=== PATIENT | female | born 1960 | race African-American/Black ===

== ENCOUNTER 2016-12-29 08:57 | Emergency (ER) | payer BC ==
[2016-12-29 09:10] VITALS: BP 155/68; PULSE 85; TEMP 98.7; BMI 37.3
[2016-12-29] MEDS ORDERED: DIPHTH,PERTUSS(ACELL),TET 0.5 ML DISP.SYRIN IM ONE (09:52)
[2016-12-29] MEDS ORDERED: ACETAMINOPHEN 325 MG TABLET (FP) PO ONE (10:44)
--- NOTE | 2016-12-29 10:49 | PDOC ---
History of Present Illness - General Chief Complaint: Injury Stated Complaint: FACE INJURY, FALL Time Seen by Provider: 12/29/16 09:40 History Source: Patient Exam Limitations: No Limitations - History of Present Illness Initial Comments: 12/29/16 10:45 CC tripped and fell on uneven sidewalk to day; hitting face on ground Occurred: reports: just prior to arrival Severity: reports: mild Pain Location: reports: face, lower extremity (left knee; left hand) Method of Injury: Yes: fall Past History - Past Medical History Allergies/Adverse Reactions: Allergies Allergy/AdvReac Type Severity Reaction Status Date / Time HAYFEVER Allergy Intermediate Uncoded 12/29/16 09:06 Home Medications: Ambulatory Orders NK [No Known Home Medication] 12/29/16 Anemia: No Asthma: No Cancer: No Cardiac Disorders: No CVA: No COPD: No CHF: No Dementia: No Diabetes: Yes (niddm) GI Disorders: No Disorders: No HTN: No Hypercholesterolemia: No Liver Disease: No Seizures: No Thyroid Disease: No - Psycho/Social/Smoking Cessation Hx Anxiety: No Suicidal Ideation: No Smoking Status: No Smoking History: Never smoked Have you smoked in the past 12 months: No Number of Cigarettes Smoked Daily: 0 Information on smoking cessation initiated: No Hx Alcohol Use: No Drug/Substance Use Hx: No Substance Use Type: None Hx Substance Use Treatment: No Review of Systems - Review of Systems Constitutional: No: Chills, Fever, Malaise HEENTM: No: Symptoms Reported Respiratory: No: Symptoms reported Cardiac (ROS): No: Symptoms Reported Musculoskeletal: No: Back Pain, Neck Pain Neurological: Yes: Headache. No: Symptoms reported, Numbness *Physical Exam - Vital Signs Last Vital Signs Temp Pulse Resp BP Pulse Ox 98.7 F 85 18 155/68 100 12/29/16 09:06 12/29/16 09:06 12/29/16 09:06 12/29/16 09:06 12/29/16 09:06 - Physical Exam General Appearance: Yes: Appropriately Dressed. No: Apparent Distress HEENT: positive: TMs Normal, Pharynx Normal, Other (FROM TMJ; no loose teeth; tender to mandible anterior to angle of jaw; multiple abrasion o face; with large hematoma forehead) Neck: positive: Supple. negative: Tender, Rigid, Tender lateral, Tender midline Respiratory/Chest: positive: Lungs Clear Extremity: positive: Other (mild tenderness to left hand and knee) Neurologic: positive: plumber's assistant II-XII NML intact, Fully Oriented, Alert, Normal Response, Motor Strength 5/5. negative: Facial Droop, Numbness, Sensory Deficit ED Treatment Course - RADIOLOGY Radiology Studies Ordered: Category Date Time Status FACIAL BONES CT W/O CONTRAST [CT] Stat CT Scan 12/29/16 09:[address] WITHOUT CONTRAST [CT] Stat CT Scan 12/29/16 09:53 Taken Medical Decision Making - Medical Decision Making 12/29/16 11:26 Tetanus given; tylenol for headache *DC/Admit/Observation/Transfer Diagnosis at time of Disposition: Multiple contusions Abrasion of face Qualifiers: Encounter type: initial encounter Qualified Code(s): S00.81XA - Abrasion of other part of head, initial encounter - Discharge Dispostion Disposition: HOME Condition at time of disposition: Stable Admit: No - Post Discharge Activity Work/School Note: Back to Work
--- NOTE | 2016-12-29 11:45 | PDOC ---
History of Present Illness - General Chief Complaint: Injury Stated Complaint: FACE INJURY, FALL Time Seen by Provider: 12/29/16 09:40 Past History - Past Medical History Allergies/Adverse Reactions: Allergies Allergy/AdvReac Type Severity Reaction Status Date / Time HAYFEVER Allergy Intermediate Uncoded 12/29/16 09:06 Home Medications: Ambulatory Orders NK [No Known Home Medication] 12/29/16 Anemia: No Asthma: No Cancer: No Cardiac Disorders: No CVA: No COPD: No CHF: No Dementia: No Diabetes: Yes (niddm) GI Disorders: No Disorders: No HTN: No Hypercholesterolemia: No Liver Disease: No Seizures: No Thyroid Disease: No - Psycho/Social/Smoking Cessation Hx Anxiety: No Suicidal Ideation: No Smoking Status: No Smoking History: Never smoked Have you smoked in the past 12 months: No Number of Cigarettes Smoked Daily: 0 Information on smoking cessation initiated: No Hx Alcohol Use: No Drug/Substance Use Hx: No Substance Use Type: None Hx Substance Use Treatment: No *Physical Exam - Vital Signs Last Vital Signs Temp Pulse Resp BP Pulse Ox 98.7 F 85 18 155/68 100 12/29/16 09:06 12/29/16 09:06 12/29/16 09:06 12/29/16 09:06 12/29/16 09:06 ED Treatment Course - RADIOLOGY Radiology Studies Ordered: Category Date Time Status FACIAL BONES CT W/O CONTRAST [CT] Stat CT Scan 12/29/16 09:[address] WITHOUT CONTRAST [CT] Stat CT Scan 12/29/16 09:53 Taken - Medications Given in the ED: ED Medications Discontinued Medications Generic Name Dose Route Start Last Admin Trade Name Juan Jose PRN Reason Stop Dose Admin Acetaminophen 650 mg 12/29/16 10:44 12/29/16 11:10 Tylenol - PO 12/29/16 10:45 650 mg ONCE ONE Administration Diphtheria/Tetanus/Acell Pertussis 0.5 ml 12/29/16 09:52 12/29/16 10:24 Boostrix - IM 12/29/16 09:53 0.5 ml .ONCE ONE Administration *DC/Admit/Observation/Transfer Diagnosis at time of Disposition: Multiple contusions Abrasion of face Qualifiers: Encounter type: initial encounter Qualified Code(s): S00.81XA - Abrasion of other part of head, initial encounter - Discharge Dispostion Disposition: HOME Condition at time of disposition: Stable - Referrals Referrals: Matthew Ingram MD [Primary Care Provider] - - Patient Instructions Additional Instructions: please see local MD in 2 fdays for reevaluation - Post Discharge Activity Work/School Note: Back to Work
== END 2016-12-29 11:54 | disposition home or self-care (01) ==
LOC: JERFT 08:57
PROC: 3E0234Z Introduction of Serum, Toxoid and Vaccine into Muscle, Percutaneous Approach (ICD-10-PCS; principal; 2016-12-29)
DX: S00.83XA Contusion of other part of head, initial encounter (principal); S00.81XA Abrasion of other part of head, initial encounter; W17.89XA Other fall from one level to another, initial encounter; Y93.01 Activity, walking, marching and hiking; Y92.480 Sidewalk as the place of occurrence of the external cause; Y99.8 Other external cause status; E11.9 Type 2 diabetes mellitus without complications; Z79.84 Long term (current) use of oral hypoglycemic drugs
CPT/HCPCS: 70450-TC; 70486-TC; 90715; 99281-25

== ENCOUNTER 2018-04-24 08:40 | Emergency (ER) | payer BC ==
[2018-04-24 08:49] VITALS: BP 188/79; PULSE 70; TEMP 99; BMI 37.3
--- NOTE | 2018-04-24 08:54 | PDOC ---
History of Present Illness - General Chief Complaint: Pain Stated Complaint: LT FOOT PAIN Time Seen by Provider: 04/24/18 08:52 History Source: Patient Exam Limitations: No Limitations - History of Present Illness Initial Comments: 04/24/18 10:13 Pt is a 57 y/o F with PMH of diabetes, L achilles repair, who presents to the ED for L heel/ankle pain. Pt states she has two bumps behind her calf. She saw Dr. Saunders for the first bump approximately 2 weeks and since it wasn't bothering her, she was told to watch and wait. Today, pt states she now has two bumps and they are sore. She feels like they are getting larger. Denies fevers, chills, redness to the surrounding area, numbness/weakness to the extremity. Past History - Travel Traveled outside of the country in the last 30 days: No Close contact w/someone who was outside of country & ill: No - Past Medical History Allergies/Adverse Reactions: Allergies Allergy/AdvReac Type Severity Reaction Status Date / Time HAYFEVER Allergy Intermediate Uncoded 04/24/18 08:49 Home Medications: Ambulatory Orders Metformin HCl [Glucophage] 500 mg PO BID 04/24/18 Oxycodone HCl/Acetaminophen [Percocet 5-325 mg Tablet] 1 tab PO Q6H #15 tablet MDD 4 04/24/18 Anemia: No Asthma: No Cancer: No Cardiac Disorders: No CVA: No COPD: No CHF: No Dementia: No Diabetes: Yes (niddm) GI Disorders: No Disorders: No HTN: No Hypercholesterolemia: No Liver Disease: No Seizures: No Thyroid Disease: No - Suicide/Smoking/Psychosocial Hx Smoking Status: No Smoking History: Never smoked Have you smoked in the past 12 months: No Number of Cigarettes Smoked Daily: 0 Hx Alcohol Use: No Drug/Substance Use Hx: No Substance Use Type: None Hx Substance Use Treatment: No Review of Systems - Review of Systems Able to Perform ROS?: Yes Comments:: 04/24/18 08:53 CONSTITUTIONAL: Absent: fever, chills, diaphoresis, generalized weakness, malaise, loss of appetite HEENT: Absent: rhinorrhea, nasal congestion, throat pain, throat swelling, difficulty swallowing, mouth swelling, ear pain, eye pain, visual Changes CARDIOVASCULAR: Absent: chest pain, loss of consciousness, palpitations, irregular heart rate, peripheral edema RESPIRATORY: Absent: cough, shortness of breath, dyspnea with exertion, orthopnea, wheezing, stridor, hemoptysis GASTROINTESTINAL: Absent: abdominal pain, abdominal distension, nausea, vomiting, diarrhea, constipation, melena, hematochezia GENITOURINARY: Absent: dysuria, frequency, urgency, hesitancy, hematuria, flank pain, genital pain MUSCULOSKELETAL: Present: L heel pain Absent: myalgia, arthralgia, joint swelling SKIN: Absent: rash, itching, pallor HEMATOLOGIC/IMMUNOLOGIC: Absent: easy bleeding, easy bruising, lymphadenopathy, frequent infections ENDOCRINE: Absent: unexplained weight gain, unexplained weight loss, heat intolerance, cold intolerance NEUROLOGIC: Absent: headache, focal weakness or paresthesias, dizziness, unsteady gait, seizure, mental status changes, bladder or bowel incontinence PSYCHIATRIC: Absent: anxiety, depression, suicidal or homicidal ideation, hallucinations. Is the patient limited Estonian proficient: No *Physical Exam - Vital Signs Last Vital Signs Temp Pulse Resp BP Pulse Ox 99.0 F 70 18 188/79 99 04/24/18 08:44 04/24/18 08:44 04/24/18 08:44 04/24/18 08:44 04/24/18 08:44 - Physical Exam Comments: 04/24/18 08:53 GENERAL: Well developed, well nourished. Awake and alert. No acute distress. MUSCULOSKELETAL Normal range of motion at all joints. No bony deformities or tenderness. No CVA tenderness. EXTREMITIES: No cyanosis. No clubbing. No edema. No calf tenderness. SKIN: Two nodules to the L posterior ankle just lateral to the achilles tendon. TTP, non-fluctuant. No evidence of cellulitis. Warm and dry. Normal capillary refill. No rashes. No jaundice. NEUROLOGICAL: Alert, awake, appropriate. Cranial nerves 2-12 intact. No deficits to light touch and temperature in face, upper extremities and lower extremities. No motor deficits in the in face, upper extremities and lower extremities. Normoreflexic in the upper and lower extremities. Normal speech. Toes are down- going bilaterally. Gait is normal without ataxia. Medical Decision Making - Medical Decision Making 04/24/18 10:35 Pt is a 57 y/o F with PMH of diabetes, L achilles repair, who presents to the ED for L heel/ankle pain. Pt states she has two bumps behind her calf -Exam with no evidence of cellulitis. Bumps are non-fluctuant -Ultrasound: 2 adjacent nonspecific soft tissue nodules are seen along the midline left ankle posteriorly measuring 1.3 height 1.1 x 0.7 cm and 1 x 0.9 x 0.5 cm no definitive fluid collection is noted. There appears to be soft tissue edema. -Will medicate for pain and have pt f/u with Dr. Saunders for non-specific nodules s/p achilles repair -Dc home. Return precautions given. Pt understands all dc instructions and all questions were answered. *DC/Admit/Observation/Transfer Diagnosis at time of Disposition: Multiple skin nodules - Discharge Dispostion Disposition: HOME Condition at time of disposition: Stable Decision to Admit order: No - Prescriptions Prescriptions: Oxycodone HCl/Acetaminophen [Percocet 5-325 mg Tablet] 1 tab PO Q6H #15 tablet MDD 4 - Referrals Referrals: Donald Ingram MD [Primary Care Provider] - Calderon Saunders MD [Staff Physician] - - Patient Instructions Additional Instructions: You have an outpouching of skin behind her ankle called nodules. Your ultrasound today did not show any evidence of infection, or fluid Use warm compresses to the area to help with pain. You may take Percocet every 6 hours as needed for pain. Do not drink or drive after taking this medication as it may make you sleepy Please keep your follow-up with Dr. Saunders for Wednesday. Return to emergency department if you have increased pain, numbness and tingling to the extremity, fevers, or if you have any changes in your symptoms. - Post Discharge Activity
== END 2018-04-24 11:35 | disposition home or self-care (01) ==
LOC: JERFT 08:40
DX: R22.42 Localized swelling, mass and lump, left lower limb (principal)
CPT/HCPCS: 76882; 99281-25

== ENCOUNTER 2019-09-10 09:42 | Emergency (ER) | payer BC ==
[2019-09-10 09:54] VITALS: BP 145/80; PULSE 100; TEMP 97.8; BMI 42.9
--- NOTE | 2019-09-10 11:15 | PDOC ---
History of Present Illness - General Chief Complaint: Abscess Boil Stated Complaint: BOIL/LEFT HEEL Time Seen by Provider: 09/10/19 10:06 History Source: Patient Exam Limitations: No Limitations - History of Present Illness Initial Comments: 09/10/19 11:11 59-year-old female status post Achilles tendon repair in 2014 presents to ED with recurrent mass over incisional site. Patient states approximate 1 year ago area became swollen and painful. Patient states went to her orthopedist Dr. Saunders who drained it but had no answer in regards to what it could have been. Patient states pain with ambulation especially flexion. Patient denies fever, chills but is a diabetic and states her glucose is controlled with no other associated symptoms. Timing/Duration: reports: other (2 days) Severity: Yes: mild Location: reports: none (Ankle) Associated Symptoms: reports: swelling/mass/lumps Past History - Travel Traveled outside of the country in the last 30 days: Yes - Past Medical History Allergies/Adverse Reactions: Allergies Allergy/AdvReac Type Severity Reaction Status Date / Time HAYFEVER Allergy Intermediate Uncoded 09/10/19 09:54 Home Medications: Ambulatory Orders Metformin HCl [Glucophage] 500 mg PO BID 04/24/18 Oxycodone HCl/Acetaminophen [Percocet 5-325 mg Tablet] 1 tab PO Q6H #15 tablet MDD 4 04/24/18 Anemia: No Asthma: No Cancer: No Cardiac Disorders: No CVA: No COPD: No CHF: No Dementia: No Diabetes: Yes (niddm) GI Disorders: No Disorders: No HTN: No Hypercholesterolemia: No Liver Disease: No Seizures: No Thyroid Disease: No - Psycho Social/Smoking Cessation Hx Smoking Status: No Smoking History: Never smoked Have you smoked in the past 12 months: No Number of Cigarettes Smoked Daily: 0 Hx Alcohol Use: No Drug/Substance Use Hx: No Substance Use Type: None Hx Substance Use Treatment: No Patient Lives Alone: No Lives with/in: spouse/SO Review of Systems - Review of Systems Able to Perform ROS?: No Is the patient limited Urdu proficient: No Constitutional: No: Symptoms Reported Integumentary: Yes: Lumps Neurological: No: Symptoms reported *Physical Exam - Vital Signs Last Vital Signs Temp Pulse Resp BP Pulse Ox 97.8 F 100 H 18 145/80 99 09/10/19 09:51 09/10/19 09:51 09/10/19 09:51 09/10/19 09:51 09/10/19 09:51 - Physical Exam General Appearance: Yes: Nourished, Appropriately Dressed. No: Apparent Distress Vascular Pulses: Doralis-Pedis (L): 2+ Integumentary: positive: Normal Color, Warm, Moist, Swelling ( 2 x 1 cm fluctuant mass over left Achilles/incisional site) Neurologic: positive: Motor Strength 5/5 (Ambulatory with cane) Procedures - Incision and Drainage I&D Site: Left: Other Betadine cleansed: No Anesthesia: 1% Lidocaine Volume(ml): 1 Blade Size: 11 Attempts: 1 (Drained approximately 3 cc of purulent fluid ) ED Treatment Course - RADIOLOGY Radiology Studies Ordered: Category Date Time Status ANKLE-LEFT [RAD] Stat Radiology 09/10/19 10:19 Ordered Medical Decision Making - Medical Decision Making 09/10/19 11:14 . Chief complaint: None mass over left Achilles repair done 2015. Patient with recurrent mass last episode being 1 year ago drained by Dr. Saunders. Exam: 2 x 1cm fuctulanct mass over left achilles Plan: I & D with wound cx. Discharge home with antibiotics secondary to diabetes. Patient has appointment with Dr. Saunders tomorrow. patient given copy of x-ray Discharge - Discharge Information Problems reviewed: Yes Clinical Impression/Diagnosis: Achilles tendon mass, Encounter for incision and drainage procedure Condition: Improved Disposition: HOME - Follow up/Referral Referrals: ON STAFF,NOT [Primary Care Provider] - Calderon Saunders MD [Staff Physician] - - Patient Discharge Instructions Patient Printed Discharge Instructions: DI for Incision and Drainage of a Skin Abscess Additional Instructions: Please follow Dr. Saunders Tomorrow. Please take antibiotics as prescribed. - Post Discharge Activity
== END 2019-09-10 11:19 | disposition home or self-care (01) ==
LOC: JERFT 09:42
PROC: 0J9P0ZZ Drainage of Left Lower Leg Subcutaneous Tissue and Fascia, Open Approach (ICD-10-PCS; principal; 2019-09-10)
DX: R22.42 Localized swelling, mass and lump, left lower limb (principal); E11.9 Type 2 diabetes mellitus without complications; Z79.84 Long term (current) use of oral hypoglycemic drugs
CPT/HCPCS: 73610-TC-LT-FY; 87070; 87077; 87186; 87205; 99282-25

== ENCOUNTER 2019-09-12 12:22 | Day surgery (SDC) | payer BC ==
--- NOTE | 2019-09-12 10:05 | HP ---
[facility] - Chief Complaint Chief Complaint: left ankle infection - Past Medical History Allergies/Adverse Reactions: Allergies Allergy/AdvReac Type Severity Reaction Status Date / Time HAYFEVER Allergy Intermediate Uncoded 09/10/19 09:54 ...LMP: 05/17/14 - Current Medications Current Medications: Home Medications Medication Instructions Recorded Metformin HCl [Glucophage] 500 mg PO BID 04/24/18 Oxycodone HCl/Acetaminophen 1 tab PO Q6H #15 tablet MDD 4 04/24/18 [Percocet 5-325 mg Tablet] Sulfamethoxazole/Trimethoprim 1 tab PO BID #14 tablet 09/10/19 [Bactrim DS -] Hydrocodone/Acetaminophen 1 each PO Q6H #20 tablet MDD 4 09/12/19 [Hydrocodone-Acetamin 5-325 mg] Satellite Physical Exam - Physical Examination General Appearance: Well Nourished, Well Developed, Alert & Oriented x3 ENT: Clear Lung: Normal air movement Extremities: Other (left ankle- + swelling, + drainage, + opending over previous incision, decr rom, nvi) Neurological: Intact, Alert, Oriented Satellite Impression/Plan - Impression/Plan Impression: left ankle infection s/p achilles tendon repair Operative Procedure: left ankle I&D Date to be Performed: 09/12/19
[2019-09-12] MEDS ORDERED: SEVOFLURANE 250 ML BTL ONE (13:33)
[2019-09-12] MEDS ORDERED: DESFLURANE GAS 240 ML BOTTLE IH ONE ×2 (13:33→13:34)
[2019-09-12 13:37] VITALS: BMI 42.9
[2019-09-12] MEDS ORDERED: ceFAZolin SODIUM 1 GM VIAL ONE ×2 (13:38→14:31)
[2019-09-12] MEDS ORDERED: LIDOCAINE HCL/PF 2% SDV 5ML VIAL ONE (13:40)
[2019-09-12] MEDS ORDERED: PROPOFOL 20 ML ONE ×4 (13:40→14:24)
[2019-09-12] MEDS ORDERED: ROCURONIUM BROMIDE 50 MG/5 ML SYRINGE ONE (13:40)
[2019-09-12] MEDS ORDERED: KETOROLAC TROMETHAMINE 30 MG/1 ML VIAL ONE (13:40)
[2019-09-12] MEDS ORDERED: MIDAZOLAM HCL 2 MG/2 ML SINGLE DOSE VIAL ONE (13:59)
[2019-09-12] MEDS ORDERED: ONDANSETRON 4 MG/2 ML VIAL IVPUSH PRN (14:04)
[2019-09-12 14:06] LABS: ALBUMIN 3.7 g/dl (3.4-5.0); BILIRUBIN,TOTAL 0.5 mg/dL (0.2-1); BLOOD UREA NITROGEN 14.2 mg/dL (7-18); CALCIUM 9.1 mg/dL (8.5-10.1); CREATININE 1.1 mg/dL (0.55-1.3); POTASSIUM 4.1 mmol/L (3.5-5.1)
[2019-09-12] MEDS ORDERED: LACTATED RINGERS SOLUTION 1,000 ML IV SCH (14:15)
[2019-09-12] MEDS ORDERED: SODIUM CHLORIDE 0.9% P/F 10 ML VIAL IJ ONE ×2 (14:31→14:32)
[2019-09-12] MEDS ORDERED: LIDOCAINE HCL 2% (20ML MULTI-DOSE VIAL) ONE (14:32)
[2019-09-12] MEDS ORDERED: METOPROLOL TARTRATE 5 MG/5 ML VIAL ONE (14:35)
[2019-09-12] MEDS ORDERED: LIDOCAINE HCL 2% (50ML VIAL) INF ONE (14:39)
[2019-09-12] MEDS ORDERED: BACITRACIN 50,000 UNITS VIAL NR ONE (14:39)
[2019-09-12] MEDS ORDERED: ceFAZolin SODIUM 1 GM VIAL IVPB ONE ×2 (14:39)
--- NOTE | 2019-09-12 15:16 | OP ---
Operative Note - Note: Operative Date: 09/12/19 Pre-Operative Diagnosis: left achilles tendon infection vs inflammation Operation: left achilles tendon incision and drainage Post-Operative Diagnosis: Same as Pre-op Surgeon: Calderon Saunders Anesthesiologist/REINSURANCE CLAIMS ANALYST: Sridhar Jay Anesthesia: Local, MAC Specimens Removed: scrapings, inflammatory tissue, culture sticks x 2 Estimated Blood Loss (mls): 0 Drains, Volume Out (mls): 0 Blood Volume Replaced (mls): 0 Fluid Volume Replaced (mls): 500 Operative Report Dictated: Yes
[2019-09-12 16:34] VITALS: TEMP 98.5
[2019-09-12 17:49] VITALS: BP 153/90; PULSE 90
--- NOTE | 2019-09-12 17:58 | OP ---
DATE OF OPERATION: DATE OF DICTATION: 09/12/2019 PREOPERATIVE DIAGNOSIS: Possible infection left Achilles tendon area. POSTOPERATIVE DIAGNOSIS: Possible infection left Achilles tendon area. PROCEDURE: Open incision and drainage left Achilles tendon area. SURGEON: Kori Garner M.D. CARE DIRECTOR RN: None. ANESTHESIOLOGIST: Sridhar Jay CRNA DRAINS: None. COMPLICATIONS: None. SPECIMENS: 2 culture sticks with tissue. BLOOD LOSS: Minimal. BLOOD GIVEN: None. INDICATION: The patient is a 59-year-old female who is 5 months status post left Achilles tendon repair. From the repair, she is doing great. She has full ankle plantar flexion, dorsiflexion, inversion, aversion, makes circles in both directions. She has excellent plantar flexion and strength. The integrity of the Achilles tendon has not been compromised but recently she developed some swelling in the dorsal aspect of the left Achilles tendon in the area of the previous surgical incision. Recently it opened up and it was swollen out to drainage. A cottage-cheese type substance was evacuated from this area. Culture stick was sent off, so far they are all negative, but the patient is on Bactrim-DS. The decision was made together to bring the patient to the operating room to do a small incision and drainage to make sure the infection if there is one does not spread further. DESCRIPTION OF PROCEDURE: The patient was brought to the operating room, peripheral IV placed, IV sedation given. 2 g of IV Ancef were given. MAC anesthesia was induced. She was placed into the prone position with her head tilted to the left. The left lower extremity was prepped and draped in sterile fashion. Tourniquet was applied to the left calf. A 10 mL 0.5% Marcaine, 1% lidocaine mix was injected in and around the surgical incision. An Esmarch bandage was used to exsanguinate the left lower extremity distal to the tourniquet, and the tourniquet was inflated to 275 mmHg. Next, a fresh number 15 scalpel blade was utilized to cut down through the skin, subcutaneous hemostasis was achieved with the Bovie cautery. Dissection done with the Metzenbaum scissors circumferentially around the very small collection of this cottage cheese-type substance. There was no pus, no fluid. It was scraped clean, and its very small pseudocapsule removed as well. This was all passed off the field as specimen, 2 culture sticks. Next, the area was irrigated and washed out. Next, I used a small curet to scrape clean this area of the pseudocapsule and this white substance. There was one Fiberwire suture which was poking through the Achilles sheath a bit. There was no track, no sinus, and there was no fluid, but it might have been irritated in this area, and now 5 months out the Achilles tendon is healed, so this Fiberwire suture was removed. This whole thing may have been an inflammatory response in response to this Fiberwire suture, but that is difficult to say. The rest of the tissue looked pristine, looked very clean. There were no sinus tracts. The area was explored, expressed. No fluid was evacuated, and the area was then copiously irrigated with a total of 500 mg of sterile saline with the pulse lavage infused with 50,000 units of bacitracin. After the irrigation, it was very clean. It was dried. 2-0 Vicryl suture was used to close the deep dermal layer, then final skin reapproximation was done with the alexia. The area was then washed and dried and covered in Xeroform gauze, 4x4 gauze, Webril and Coban. The tourniquet was taken down after a total tourniquet time of 17 minutes. There were no complications during the case. The patient tolerated the procedure well and was brought to the ambulatory recovery in stable condition. KORI GARNER M.D. [id number]
== END 2019-09-12 17:20 | disposition home or self-care (01) ==
LOC: JASU-SURG 12:22
PROVIDERS: ATTEND Orthopaedic Surgery
PROC: 0JCP0ZZ Extirpation of Matter from Left Lower Leg Subcutaneous Tissue and Fascia, Open Approach (ICD-10-PCS; principal; 2019-09-12 14:30)
DX: M22.42 Chondromalacia patellae, left knee (principal)
CPT/HCPCS: 36415; 80053; 82962; 87070; 87075; 87205; 94760

== ENCOUNTER 2020-03-11 04:29 | Day surgery (SDC) | payer BC ==
[2020-03-07 16:48] VITALS: BMI 37.6
--- NOTE | 2020-03-08 11:50 | HP ---
[facility] - Chief Complaint Chief Complaint: right knee pain - Past Medical History Allergies/Adverse Reactions: Allergies Allergy/AdvReac Type Severity Reaction Status Date / Time No Known Drug Allergies Allergy Verified 03/07/20 16:48 HAYFEVER Allergy Intermediate Uncoded 03/07/20 16:48 ...LMP: 05/17/14 - Current Medications Current Medications: Home Medications Medication Instructions Recorded Metformin HCl [Glucophage] 500 mg PO BID 04/24/18 Amlodipine Besylate 5 mg PO DAILY 09/12/19 Satellite Physical Exam - Physical Examination General Appearance: Well Nourished, Well Developed, Alert & Oriented x3 ENT: Clear Lung: Normal air movement Extremities: Other (right knee- + swelling, + ttp, decr rom, nvii) Neurological: Intact, Alert, Oriented Satellite Impression/Plan - Impression/Plan Impression: right knee internal derangement Operative Procedure: right knee arthroscopy Date to be Performed: 03/11/20
[2020-03-11 07:19] VITALS: BP 140/83; PULSE 85; TEMP 97.5
== END 2020-03-11 10:20 | disposition home or self-care (01) ==
LOC: JASU-SURG 04:29
PROVIDERS: ATTEND Orthopaedic Surgery
DX: Z53.8 Procedure and treatment not carried out for other reasons (principal)
CPT/HCPCS: 82962

== ENCOUNTER → 2020-03-13 | Day surgery (SDC) | payer BC ==
[2020-03-12 12:17] VITALS: BMI 37.6
--- NOTE | 2020-03-12 16:57 | HP ---
[facility] - Chief Complaint Chief Complaint: right knee pain - Past Medical History Allergies/Adverse Reactions: Allergies Allergy/AdvReac Type Severity Reaction Status Date / Time No Known Drug Allergies Allergy Verified 03/11/20 07:25 HAYFEVER Allergy Intermediate Uncoded 03/11/20 07:25 ...LMP: 05/17/14 - Current Medications Current Medications: Home Medications Medication Instructions Recorded Metformin HCl [Glucophage] 500 mg PO BID 04/24/18 Amlodipine Besylate 5 mg PO DAILY 09/12/19 Satellite Physical Exam - Physical Examination General Appearance: Well Nourished, Well Developed, Alert & Oriented x3 ENT: Clear Lung: Normal air movement Extremities: Other (right knee- + swelling, + ttp, decr rom, nvi) Neurological: Intact, Alert, Oriented Satellite Impression/Plan - Impression/Plan Impression: right knee internal derangement Operative Procedure: right knee arthroscopy Date to be Performed: 03/12/20
[~2020-03-13] MED LIST: DEXAMETHASONE SOD PHOSPHATE 4 MG/1 ML VIAL ONE; IBUPROFEN 800 MG/8 ML IJ IVPB ONE; IBUPROFEN 800 MG/8 ML IJ IVPB PRN; INSULIN (NOVOLOG) ASPART 100 UNITS/ML 10ML VIAL SQ ONE; INSULIN REGULAR HUMAN 100 UNITS/ML *VIAL SQ ONE; LACTATED RINGERS SOLUTION 1,000 ML IV SCH; LIDOCAINE HCL/PF 2% SDV 5ML VIAL ONE; MIDAZOLAM HCL 2 MG/2 ML SINGLE DOSE VIAL ONE; ONDANSETRON 4 MG/2 ML VIAL IVPUSH PRN; PROPOFOL 20 ML ONE; SODIUM CHLORIDE 0.9% P/F 10 ML VIAL IJ ONE; ceFAZolin 2 GRAM PREMIX BAG IVPB ONE; ceFAZolin SODIUM 1 GM VIAL ONE; oxyCODONE HCL 5 MG TABLET PO PRN
--- NOTE | 2020-03-13 10:51 | OP ---
Operative Note - Note: Operative Date: 03/13/20 Pre-Operative Diagnosis: right knee pain, medial meniscus tear, OA Operation: right knee arthroscopy, partial medial meniscectomy, debridement chondroplasty Post-Operative Diagnosis: Same as Pre-op Surgeon: Calderon Saunders Anesthesiologist/STORAGE BATTERY INSPECTOR AND TESTER: Hanna Andres Anesthesia: General, Local Specimens Removed: shavings Estimated Blood Loss (mls): 15 Drains, Volume Out (mls): 0 Blood Volume Replaced (mls): 0 Fluid Volume Replaced (mls): 700 Operative Report Dictated: Yes
[2020-03-13 14:51] VITALS: BP 120/66; PULSE 79; TEMP 97.8
--- NOTE | 2020-03-14 12:44 | OP ---
DATE OF OPERATION: DATE OF DICTATION: 03/13/2020 PREOPERATIVE DIAGNOSIS: Right knee pain, medial meniscus tear, and osteoarthritis. POSTOPERATIVE DIAGNOSIS: Right knee pain, medial meniscus tear, and osteoarthritis. PROCEDURE: Right knee arthroscopy, partial medial meniscectomy, and debridement chondroplasty. SURGEON: Kori Garner M.D. RESIDENTIAL TECH: None. ANESTHESIOLOGIST: ROBERTO Nolen ANESTHESIA: LMA anesthesia with local injection 20 mL 0.5% Marcaine. SPECIMEN: Arthroscopic shavings. DRAINS: None. COMPLICATIONS: None. BLOOD TRANSFUSIONS: None. FLUID REPLACEMENT: 700 mL Plasmalyte. INDICATIONS: This patient is a 59-year-old female with a preoperative diagnosis of recurrent right knee pain, medial meniscus tear, and osteoarthritis. After understanding the potential risks, complications, alternatives, and benefits of surgery versus nonsurgical treatment, the patient elected to undergo this procedure. PROCEDURE: The patient was brought to the operating room, peripheral IV placed, IV sedation given. Then 2 g of IV Ancef was given. LMA anesthesia was induced. Ample Webril was placed on the right thigh. She was placed into the C-clamp leg owlfe with ample padding throughout. The right lower extremity was prepped and draped in a sterile fashion, elevated, exsanguinated with an Esmarch bandage and tourniquet inflated to 270 mm of mercury. A superior medial outflow portal was established. A lateral portal was established and an arthroscope was introduced into the joint under direct visualization using the spinal needle. A medial portal was established. A diagnostic arthroscopy was performed. Medially it was apparent that the patient had grade 2/grade 3 osteoarthritis of the medial tibial plateau and grade 2 changes of the medial femoral condyle. The patient had a relatively small but complex tear of the posterior horn medial meniscus and some fraying of the body of the medial meniscus. Both of these were dbrided with the curved shaver. Debridement chondroplasty was performed in the medial compartment as well of loose unstable flaps coming off the medial tibial plateau. The intercondylar notch looked good. There was some excessive ligamentum mucosum and synovitis which are removed. The ACL looked good. It was probed and had the appropriate tension. Next, our attention turned to the lateral compartment which looked pristine. There was no osteoarthritis and the lateral meniscus looked good. Next, our attention to the patellofemoral joint where the patient had significant large areas of grade 4 osteoarthritis of the femoral trochlea as well as the undersurface of the patella. A debridement chondroplasty was performed on the unstable chondromalacia of the undersurface of the patella as well as the femoral trochlea as well as excessive synovitis anterior to that. Once this was done, additional photographs were taken. The area was copiously irrigated and washed out. All excess saline removed. The arthroscopy portals were closed with 3-0 nylon sutures. The areas were washed and dried, covered with Xeroform gauze, 4 x 4 gauze, Webril and 2 YNDIA bandages. The tourniquet was taken down after a total tourniquet time of 23 minutes. There were no complications during the case and the patient tolerated the procedure quite well and was brought to the ambulatory recovery room in stable condition. KORI GARNER M.D. [id number]
--- NOTE | 2020-03-14 19:04 | PATH ---
Surgical Pathology Report Patient Name: GAY MENDOZA [facility]. Rec. #: [id number] /Age/Gender: 1960 (Age: 59) / F Account: [id number] Location: [facility] Taken: 03/13/2020 Received: 03/13/2020 Reported: 03/14/2020 Physicians: Calderon Saunders M.D. Specimen(s) Received SHAVINGS Clinical History Tear right knee Final Diagnosis KNEE SHAVINGS, RIGHT, ARTHROSCOPY, PARTIAL MENISCECTOMY, DEBRIDEMENT: FRAGMENTS OF CARTILAGE, DENSE FIBROCONNECTIVE TISSUE, ADIPOSE TISSUE, AND SYNOVIUM. Electronically Signed Lashonda Mejia M.D. Gross Description Received in formalin, labeled "right knee shaving," is a 3.5 x 3.0 x 0.4 cm. aggregate of anderson-yellow soft tissue fragments. A home office representative portion is submitted in one cassette. /03/13/2020 saudi/03/13/2020
== END | disposition home or self-care (01) ==
LOC: JASU-SURG 06:09
PROVIDERS: ATTEND Orthopaedic Surgery
PROC: 0SBC4ZZ Excision of Right Knee Joint, Percutaneous Endoscopic Approach (ICD-10-PCS; principal; 2020-03-13 08:00)
DX: S83.231A Complex tear of medial meniscus, current injury, right knee, initial encounter (principal); M17.11 Unilateral primary osteoarthritis, right knee; X58.XXXA Exposure to other specified factors, initial encounter; Y93.9 Activity, unspecified; Y92.9 Unspecified place or not applicable; Y99.9 Unspecified external cause status; I10 Essential (primary) hypertension; E66.01 Morbid (severe) obesity due to excess calories; E11.9 Type 2 diabetes mellitus without complications; Z79.84 Long term (current) use of oral hypoglycemic drugs
CPT/HCPCS: 82962; 88304-TC; 94760